=== PATIENT | female | born 1970 | race Caucasian/White ===

== ENCOUNTER 2019-06-13 14:16 | Emergency (ER) | payer SELFPAY ==
[~2019-06-13] VITALS: Ht 165.1 cm; Wt 77.1 kg
--- OUTSIDE RECORDS SUMMARY | 2019-06-13 14:19 | XMS REPORT ---
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 Allergies, Adverse Reactions, Alerts Allergy Name Allergy Type Status Severity Reaction(s) Onset Date Inactive Date Treating Clinician Comments No Known Allergies DA Active U 2019-06-07 00:00:00 Medications This patient has no known medications.
[2019-06-13] MEDS ORDERED: KETOROLAC TROMETHAMINE 30 MG/ML VIAL IV STA (14:46)
[2019-06-13] MEDS ORDERED: ONDANSETRON HCL INJ 2MG/ML 2ML 2 MG/ML VIAL IV STA (14:46)
[2019-06-13] MEDS ORDERED: SODIUM CHLORIDE 0.9% 1000ML 1,000 ML IV STA (14:46)
[2019-06-13] MEDS ORDERED: LORAZEPAM INJ 2 MG/ML VIAL IV ONE (15:00)
[2019-06-13] MEDS ORDERED: SODIUM CHLORIDE 0.9% 1000ML 1,000 ML ONE (15:09)
--- NOTE | 2019-06-13 16:34 | Diagnostic Imaging Report ---
Exams: Head and cervical spine CTs without IV contrast History: Headache, neck, nausea, vomiting Comparison studies: None Technique: Axial images were obtained from the brain and cervical spine. Coronal and sagittal images reconstructed from the axial data. Dose modulation, iterative reconstruction, and/or weight based adjustment of the mA/kV was utilized to reduce the radiation dose to as low as reasonably achievable. Intravenous contrast: None Findings: Head CT: Streak and beam hardening artifact from metallic hair extensions somewhat limited evaluation. Scalp: No abnormalities. Bones: No fractures, blastic or lytic lesions. Extra-axial spaces: No masses. No fluid collections. Brain sulci: Appropriate for age. Ventricles: Normal in size and configuration. No hydrocephalus. Parenchyma: Artifacts from extensions limit evaluation. No gross masses, acute hemorrhage or acute or chronic cortical insults. Sellar/suprasellar region: No abnormalities. Craniocervical junction: The foramen magnum is patent. No Chiari one malformation. Cervical spine CT: Fractures: None. Soft tissues: No gross abnormalities. Atlantoaxial articulation: Intact. Alignment: Strain cervical curvature may be positional. No subluxations. Cervicomedullary junction: No abnormalities. The foramen magnum is patent. Vertebrae: No infection or neoplasm. Degenerative changes: Degenerative changes at C5-C6 with mildly degenerated disc with small disc osteophyte complex which indents the thecal sac and moderate right facet arthrosis without significant canal or foraminal stenosis. Incidental findings: Dental caries with tooth #16 periapical lucency. Small bilateral maxillary sinus retention cysts. Mild scarring with small blebs at the lung apices. IMPRESSION: Head CT: 1. Exam limited by artifacts related to patient's hair extensions. 2. No gross acute intracranial abnormalities. Cervical spine CT: 1. Mildly degenerated disc and right facet arthrosis at C5-C6. 2. No significant canal or foraminal stenosis. 3. Cannot exclude ligament, spinal cord and or vascular abnormalities on the basis of this examination. Signed by: Dr. Piter Garcia M.D. on 06/13/2019 4:30 PM
[2019-06-13] MEDS ORDERED: MORPHINE SULFATE 2 MG/ML SYR 1ML IV STA ×2 (16:41→17:12)
[2019-06-13] MEDS ORDERED: MORPHINE SULFATE INJ 4 MG/ML INJ 1ML ONE (17:00)
--- NOTE | 2019-06-13 17:00 | NUR ---
PT STILL COMPLAINING OF HEADACHE AND NECK PAIN AND UNCONTROLABLE SHAKING. DR KO NOTIFIED, PT TO HAVE LP DONE, PT AWARE OF RISK AND BENEFITS FOR PROCEDURE CONSENT SIGNED AND PLACED IN CHART
[2019-06-13] MEDS ORDERED: LIDOCAINE HCL 1% LOCAL INJ 20 ML VIAL ONE (18:07)
--- NOTE | 2019-06-13 18:59 | NUR ---
REPORT TO KIRAN SAAVEDRA
[2019-06-13] MEDS ORDERED: CEFTRIAXONE SOD 2 GM/NS 100 ML 100 ML IV ONE (19:00)
[2019-06-13] MEDS ORDERED: FENTANYL CITRATE/PF 100MCG/2 ML INJ IV ONE ×2 (19:00→19:15)
[2019-06-13] MEDS ORDERED: SODIUM CHLORIDE 0.9% 100 ML ONE (19:15)
[2019-06-13] MEDS ORDERED: CEFTRIAXONE SOD 1 GM VIAL ONE (19:22)
[2019-06-13] MEDS ORDERED: SODIUM CHLORIDE 0.9% 250ML 250 ML ONE (19:23)
[2019-06-13 20:00] LABS: APPEARANCE,CSF CLEAR (CLEAR); COLOR,CSF COLORLESS (COLORLESS); TUBE NUMBER 3; WHITE BLOOD CELL,CSF 2 cells/uL (0-5)
[2019-06-13 21:29] LABS: TOTAL PROTEIN,CSF 19.7 mg/dL (15-40)
== END 2019-06-13 21:30 | disposition other institution (70) ==
LOC: FSED 14:16
DX: G44.89 Other headache syndrome (principal); M54.2 Cervicalgia; Z98.84 Bariatric surgery status
CPT/HCPCS: 36415; 62270; 70450; 72125; 80053; 81003; 81025; 82945; 84157; 85025; 87040; 87070; 87071; 87205; 89051; 99284; J0696; J1885; J2001; J2060; J2270; J2405; J3010; J7030; J7050 ×2